=== PATIENT | female | born 1980 | race Two or more races ===

== ENCOUNTER 2017-05-14 02:52 | Emergency (ER) | payer MEDICAID ==
[~2017-05-14] VITALS: Ht 170.2 cm; Wt 68.0 kg
[2017-05-14] MEDS ORDERED: LIDOCAINE 1% (LOCAL ANESTH.) PF 5ml SDV ID ONE (06:45)
[2017-05-14] MEDS ORDERED: NEOMYCIN-BACITRACIN-POLYM UNITDOSE PKG TOP OINT TOP ONE (06:45)
[2017-05-14] MEDS ORDERED: BACITRACIN TOP OINT 1 UD PKG TOP ONE (06:45)
[2017-05-14] MEDS ORDERED: LIDOCAINE 1% (LOCAL ANESTH.) PF 5ml SDV ONE (06:56)
[2017-05-14] MEDS ORDERED: TETANUS-DIPTH-ACEL PERTUSSIS 0.5ML SYRG IM ONE (07:00)
[2017-05-14] MEDS ORDERED: ceFAZolin 1GM/50ML 50 ML IV ONE (07:45)
[2017-05-14 08:53] VITALS: BP 115/78
== END 2017-05-14 09:09 | disposition short-term general hospital (02) ==
LOC: EDBD 02:52 → ER 03:04
DX: S61.512A Laceration without foreign body of left wrist, initial encounter (principal); W26.0XXA Contact with knife, initial encounter; Y93.89 Activity, other specified; Y92.89 Other specified places as the place of occurrence of the external cause; Y99.8 Other external cause status
CPT/HCPCS: 12032; 90471; 90715; 96365; 99285; J0690; 12042